=== PATIENT | female | born 1975 | race Caucasian/White ===

== ENCOUNTER 2016-12-17 18:45 | Emergency (ER) | payer MEDICAID ==
[2016-12-17] MEDS ORDERED: LORazepam 2 MG/ML MDV IM ONE (19:16)
--- NOTE | 2016-12-17 19:28 | EDM.PDOC ---
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 she has a 16, 12 and 5yo child at home, she is , children go between 2 house pt last saw her PCP Dr Ramsey 3m ago, given Rx for Wellbutrin, however she had bad dreams and stopped taking it her BP has been inc'd in past, never on BP meds, BP has been wnl on several occasions at pharmacy BP 176/86 here, altho visibly distressed and has been running higher as well gives vague c/o chest discomfort and heart racing states she does not sleep well at night has a 19 yo daughter that left to go to [place] 3m ago, pt has been sending her money and a bus ticket home, dtr will not return home, is using drugs, pt feels she is enabling her dtr occ THC, no soda, 2 cups coffee daily, no energy drinks, occ alcohol, no alc in house, 2-3 cigs/d Bilateral Upper Pain Score (Numeric/FACES): 0 - Related Data Allergies Allergy/AdvReac Type Severity Reaction Status Date / Time naproxen sodium [From Aleve] Allergy Itching Verified 08/25/13 19:56 Home Meds: Home Meds FLUoxetine [PROzac] 20 mg PO 08/25/13 [History] predniSONE [Prednisone] 10 mg PO DAILY 10 Days 08/25/13 [Rx] Metoprolol Succinate 25 mg PO DAILY #14 tab.er.24h 12/17/16 [Rx] hydrOXYzine Pamoate [Hydroxyzine Pamoate] 25 mg PO TID #40 capsule 12/17/16 [Rx] Social & Family History - Tobacco Use Years of Tobacco use: 20 - Alcohol Use Days Per Week of Alcohol Use: 0 - Recreational Drug Use Recreational Drug Use: No ED ROS GENERAL - Review of Systems Review Of Systems: See Below Constitutional: Reports: No Symptoms HEENT: Reports: No Symptoms Respiratory: Reports: No Symptoms Cardiovascular: Reports: Chest Pain, Blood Pressure Problem, Palpitations Endocrine: Reports: No Symptoms GI/Abdominal: Reports: No Symptoms : Reports: No Symptoms Musculoskeletal: Reports: No Symptoms Skin: Reports: No Symptoms Neurological: Reports: No Symptoms Psychiatric: Reports: Anxiety Hematologic/Lymphatic: Reports: No Symptoms Immunologic: Reports: No Symptoms ED EXAM, GENERAL - Physical Exam Exam: See Below Exam Limited By: No Limitations General Appearance: Alert, WD/WN, Anxious Ears: Normal External Exam, Hearing Grossly Normal Ear Exam: Bilateral Ear: Auricle Normal Nose: Normal Inspection, Normal Mucosa, No Blood Throat/Mouth: Normal Inspection, Normal Lips, Normal Oropharynx, Normal Voice, No Airway Compromise Head: Atraumatic, Normocephalic Neck: Normal Inspection, Supple, Non-Tender, Full Range of Motion Respiratory/Chest: No Respiratory Distress, Lungs Clear, Normal Breath Sounds, No Accessory Muscle Use Cardiovascular: Normal Peripheral Pulses, Regular Rate, Rhythm, No Edema, No Gallop, No JVD, No Murmur, No Rub GI/Abdominal: Soft, Non-Tender, No Distention Back Exam: Normal Inspection, Full Range of Motion, NT Extremities: Normal Inspection, Normal Range of Motion, Non-Tender, Normal Capillary Refill, No Pedal Edema Neurological: Alert, Oriented, CN II-XII Intact, Normal Cognition, No Motor/ Sensory Deficits Psychiatric: Anxious Skin Exam: Warm, Dry, Intact, Normal Color, No Rash Lymphatic: No Adenopathy Course - Vital Signs Last Recorded V/S: Last Vital Signs Temp 36.7 C 12/17/16 18:45 Pulse Resp 20 12/17/16 18:45 BP 176/86 H 12/17/16 18:45 Pulse Ox - Orders/Labs/Meds Orders: Active Orders 24 hr Category Date Time Status EKG Documentation Completion [RC] ASDIRECTED Care 12/17/16 19:18 Active Potassium Chloride [Klor-Con M20] Med 12/17/16 20:58 Once 40 meq PO ONETIME ONE EKG 12 Lead [EK] Routine Ther 12/17/16 19:17 Ordered Labs: Laboratory Tests 12/17/16 12/17/16 12/17/16 Range/Units 19:00 19:00 19:35 WBC 6.7 (4.5-12.0) X10-3/uL RBC 4.33 (3.23-5.20) x10(6)uL Hgb 13.2 (11.5-15.5) g/dL Hct 38.9 (30.0-51.3) % MCV 89.8 (80-96) fL MCH 30.4 (27.7-33.6) pg MCHC 33.8 (32.2-35.4) g/dL RDW 12.9 (11.5-15.5) % Plt Count 195 (125-369) X10(3)uL MPV 8.1 (7.4-10.4) fL Neut % (Auto) 42.2 L (46-82) % Lymph % (Auto) 47.3 H (13-37) % [place] % (Auto) 7.1 (4-12) % Eos % (Auto) 3 (1.0-5.0) % Baso % (Auto) 1 (0-2) % Neut # (Auto) 2.8 (1.6-8.3) # Lymph # (Auto) 3.2 (0.6-5.0) # [place] # (Auto) 0.5 (0.0-1.3) # Eos # (Auto) 0.2 (0.0-0.8) # Baso # (Auto) 0.0 (0.0-0.2) # Sodium (135-145) mmol/L Potassium (3.5-5.3) mmol/L Chloride (100-110) mmol/L Carbon Dioxide (23-29) mmol/L BUN (5-20) mg/dL Creatinine (0.6-1.3) mg/dL Est Cr Clr Drug Dosing mL/min Estimated GFR (MDRD) (>60) BUN/Creatinine Ratio (9-20) Glucose (80-116) mg/dL Calcium (8.6-10.2) mg/dL Total Bilirubin (0.1-1.3) mg/dL AST (5-27) IU/L ALT (14-26) IU/L Alkaline Phosphatase (56-112) IU/L Troponin I (0.02-0.06) NG/ML Total Protein (6.0-8.0) g/dL Albumin (3.5-5.2) g/dL Globulin g/dL Albumin/Globulin Ratio Urine Color Yellow (YELLOW) Urine Appearance Clear (CLEAR) Urine pH 7.0 H (5.0-6.5) Ur Specific [place] 1.015 (1.010-1.025) Urine Protein Negative (NEGATIVE) mg/dL Urine Glucose (UA) Normal (NEGATIVE) mg/dL Urine Ketones Negative (NEGATIVE) mg/dL Urine Occult Blood Negative (NEGATIVE) Urine Nitrite Negative (NEGATIVE) Urine Bilirubin Negative (NEGATIVE) Urine Urobilinogen Normal (NEGATIVE) mg/dL Ur Leukocyte Esterase Small H (NEGATIVE) Urine RBC Not seen (0) Urine WBC 0-5 (0) Ur Squamous Epith Cells Moderate H (NS,R,O) Urine Bacteria Few H (NS) Urine Opiates Screen Negative (NEGATIVE) Ur Oxycodone Screen Negative (NEGATIVE) Ur Propoxyphene Screen Negative (NEGATIVE) Ur Barbituates Screen Negative (NEGATIVE) Ur Tricyclics Screen Negative (NEGATIVE) Ur Phencyclidine Scrn Negative (NEGATIVE) Ur Amphetamine Screen Negative (NEGATIVE) Urine MDMA Screen Negative (NEGATIVE) U Benzodiazepines Scrn Negative (NEGATIVE) U Cocaine Metab Screen Negative (NEGATIVE) U Marijuana (THC) Screen Negative (NEGATIVE) 12/17/16 12/17/16 Range/Units 19:35 19:35 WBC (4.5-12.0) X10-3/uL RBC (3.23-5.20) x10(6)uL Hgb (11.5-15.5) g/dL Hct (30.0-51.3) % MCV (80-96) fL MCH (27.7-33.6) pg MCHC (32.2-35.4) g/dL RDW (11.5-15.5) % Plt Count (125-369) X10(3)uL MPV (7.4-10.4) fL Neut % (Auto) (46-82) % Lymph % (Auto) (13-37) % [place] % (Auto) (4-12) % Eos % (Auto) (1.0-5.0) % Baso % (Auto) (0-2) % Neut # (Auto) (1.6-8.3) # Lymph # (Auto) (0.6-5.0) # [place] # (Auto) (0.0-1.3) # Eos # (Auto) (0.0-0.8) # Baso # (Auto) (0.0-0.2) # Sodium 137 (135-145) mmol/L Potassium 3.4 L (3.5-5.3) mmol/L Chloride 105 (100-110) mmol/L Carbon Dioxide 25 (23-29) mmol/L BUN 14 (5-20) mg/dL Creatinine 0.5 L (0.6-1.3) mg/dL Est Cr Clr Drug Dosing 143.99 mL/min Estimated GFR (MDRD) > 60 (>60) BUN/Creatinine Ratio 28.0 H (9-20) Glucose 126 H (80-116) mg/dL Calcium 9.2 (8.6-10.2) mg/dL Total Bilirubin 0.2 (0.1-1.3) mg/dL AST 17 (5-27) IU/L ALT 14 (14-26) IU/L Alkaline Phosphatase 47 L (56-112) IU/L Troponin I < 0.01 L (0.02-0.06) NG/ML Total Protein 7.2 (6.0-8.0) g/dL Albumin 4.0 (3.5-5.2) g/dL Globulin 3.2 g/dL Albumin/Globulin Ratio 1.3 Urine Color (YELLOW) Urine Appearance (CLEAR) Urine pH (5.0-6.5) Ur Specific [place] (1.010-1.025) Urine Protein (NEGATIVE) mg/dL Urine Glucose (UA) (NEGATIVE) mg/dL Urine Ketones (NEGATIVE) mg/dL Urine Occult Blood (NEGATIVE) Urine Nitrite (NEGATIVE) Urine Bilirubin (NEGATIVE) Urine Urobilinogen (NEGATIVE) mg/dL Ur Leukocyte Esterase (NEGATIVE) Urine RBC (0) Urine WBC (0) Ur Squamous Epith Cells (NS,R,O) Urine Bacteria (NS) Urine Opiates Screen (NEGATIVE) Ur Oxycodone Screen (NEGATIVE) Ur Propoxyphene Screen (NEGATIVE) Ur Barbituates Screen (NEGATIVE) Ur Tricyclics Screen (NEGATIVE) Ur Phencyclidine Scrn (NEGATIVE) Ur Amphetamine Screen (NEGATIVE) Urine MDMA Screen (NEGATIVE) U Benzodiazepines Scrn (NEGATIVE) U Cocaine Metab Screen (NEGATIVE) U Marijuana (THC) Screen (NEGATIVE) Meds: Medications Discontinued Medications Generic Name Dose Route Start Last Admin Trade Name Freq PRN Reason Stop Dose Admin Lorazepam 2 mg 12/17/16 19:16 12/17/16 20:21 Ativan IM 12/17/16 19:17 2 mg ONETIME ONE Administration - Re-Assessments/Exams Free Text/Narrative Re-Assessment/Exam: 12/17/16 20:58 pt feeling a little better, more relaxed, BP 158/91, may benefit from a beta marlin which she should d/w her PCP. Labs neg except K 3.4. Pt has not worked with counselor in the past except with her children. Departure - Departure Time of Disposition: 21:00 Disposition: Home, Self-Care 01 Condition: good Clinical Impression: Anxiety - Discharge Information Prescriptions: Metoprolol Succinate 25 mg PO DAILY #14 tab.er.24h hydrOXYzine Pamoate [Hydroxyzine Pamoate] 25 mg PO TID #40 capsule Instructions: Panic Attacks Additional Instructions: For anxiety (and skin rash), take hydroxyzine 25 mg 1 tab 3 times a day for 1 week. You may take a 2nd tab 3 times a day, as needed, for up to a total of 6 tabs a day. For blood pressure (as well as palpitations and anxiety), take metoprolol XL 25 mg [address] Ramsey in the next 1-2 days. Return to ED if you are feeling worse. Call your Physician or Return to Emergency Department if: * Your condition worsens in any way. * You develop fever greater than 100.4. * You have vomitting that does not stop with medications. * You have pain that is not controlled with medications. - My Orders Last 24 Hours: My Active Orders 12/17/16 19:17 EKG 12 Lead [EK] Routine 12/17/16 19:18 EKG Documentation Completion [RC] ASDIRECTED 12/17/16 20:58 Potassium Chloride [Klor-Con M20] 40 meq PO ONETIME ONE - Assessment/Plan Last 24 Hours: My Active Orders 12/17/16 19:17 EKG 12 Lead [EK] Routine 12/17/16 19:18 EKG Documentation Completion [RC] ASDIRECTED 12/17/16 20:58 Potassium Chloride [Klor-Con M20] 40 meq PO ONETIME ONE
[2016-12-17] MEDS ORDERED: Potassium Chloride 20 MEQ Tab.ER PO ONE (20:58)
[2016-12-17] MEDS ORDERED: Metoprolol Succinate 25 MG Tab.ER PO ONE (21:17)
[2016-12-17 21:54] VITALS: BP 164/72
== END 2016-12-17 21:50 | disposition home or self-care (01) ==
LOC: FB.ED 18:45
DX: F41.9 Anxiety disorder, unspecified (principal); Z88.8 Allergy status to other drugs, medicaments and biological substances; Z79.899 Other long term (current) drug therapy
CPT/HCPCS: 36415; 80053; 80305; 81001; 84484; 85025; 93005; 96372; 99285; A9270; J2060

== ENCOUNTER 2017-12-29 05:02 | Emergency (ER) | payer MEDICAID ==
[2017-12-29] MEDS ORDERED: Triamcinolone Acetonide 40 MG/ML 1 ML MDV IM ONE (06:30)
[2017-12-29] MEDS ORDERED: hydrOXYzine HCl 50 MG/ML SDV IM ONE (06:30)
[2017-12-29 06:58] VITALS: BP 163/78
--- NOTE | 2017-12-29 07:22 | ER ---
DATE SEEN: 12/29/2017 CHIEF COMPLAINT: Shortness of breath. HISTORY OF PRESENT ILLNESS: This is a 42-year-old female with shortness of breath since the morning. She attributes it to anxiety. She also complains of abdominal pain that is on and off for the last six weeks after surgery. She had tubal ablation, laparoscopically. She has hydrocodone at home but has not taken it. The pain is moderate to severe. REVIEW OF SYSTEMS: She complains of a rash around the neck area that is itchy. She has had this before. She does not complain of fever or chills, sore throat or cough. ALLERGIES: Reviewed. PHYSICAL EXAMINATION: GENERAL: She is not in distress. VITAL SIGNS: She has a blood pressure of 150/91, temperature 98.5, and oxygenation 99% on room air. Respiratory rate is 15. ENT: Negative. CHEST: Clear. ABDOMEN: Soft, benign. SKIN: No pallor or jaundice. The wound appears clean. There is a red hue and diffuse rash in the neck area. LABORATORY DATA: Sodium was normal, potassium was 3.1, and troponin was less than 0.17. EKG was negative. D-dimer was negative. IMPRESSION: 1. Nonspecific abdominal pain. 2. Hives. 3. Anxiety. PLAN: 1. Vistaril and Kenalog IM. 2. A note was given to stay home today and return to work tomorrow. Discussed with the surgeon about work restrictions. /[id number] SARA/GOPI
== END 2017-12-29 06:56 | disposition home or self-care (01) ==
LOC: FB.ED 05:02
DX: L50.9 Urticaria, unspecified (principal); R10.9 Unspecified abdominal pain; F41.9 Anxiety disorder, unspecified
CPT/HCPCS: 36415; 80053; 84484; 85025; 85379; 93005; 96372; 99284; J3301; J3410

== ENCOUNTER 2018-08-20 17:09 | Emergency (ER) | payer MEDICAID ==
[2018-08-20] MEDS ORDERED: Labetalol 20 MG/4 ML Syringe IVPUSH ONE ×2 (17:15→17:55)
--- NOTE | 2018-08-20 17:22 | EDM.PDOC ---
ED HPI GENERAL MEDICAL PROBLEM - General Chief Complaint: Syncope Stated Complaint: HIGH BP Time Seen by Provider: 08/20/18 17:09 Source of Information: Reports: Patient, Family History Limitations: Reports: No Limitations - History of Present Illness INITIAL COMMENTS - FREE TEXT/NARRATIVE: 43 y.o.w.f -smoker- came to the clinic due to dizziness. Her BP was 220/130 and she was transferred to the ed for further care. On arrival in the ed, her BP was 188/98 with mild dizziness. Pt was told she has HNT in past and was prescribed meds, but she ignored it and did not take any BP meds. Pt fell yesterday and injured her right thigh which resulted in hematoma of her right thigh, lateral aspect. Pt is able to apply full weight onto her right leg, however. No N/V/D, no headache no SOB, no C/P no other acute medical issue. BP 188/98 Pulse 89 RR 18 Pulse ox 99% on RA Temp 36.8 Onset Date: 08/20/18 Onset Time: 07:00 Duration: Day(s):, Intermittent Location: Reports: Generalized Quality: Reports: Ache, Other (right thigh) Improves with: Reports: Cold Therapy, Rest Worsens with: Reports: Movement Context: Reports: Trauma (minor trauma) Associated Symptoms: Reports: Malaise, Rash (right thigh) - Related Data Allergies Allergy/AdvReac Type Severity Reaction Status Date / Time naproxen sodium [From Aleve] Allergy Itching Verified 08/20/18 17:13 Home Meds: Home Meds Acetaminophen/HYDROcodone [[place] 325-5 MG] 1 - 2 tab PO Q6H PRN #14 tab [Rx] Escitalopram [Lexapro] 10 mg PO DAILY 08/20/18 [History] cloNIDine [Catapres] 0.1 mg PO Q12HR #20 tab 08/20/18 [Rx] hydrOXYzine pamoate [Hydroxyzine Pamoate] 25 mg PO DAILY 08/20/18 [History] Past Medical History - Past Health History Medical/Surgical History: Denies Medical/Surgical History HEENT History: Reports: None Cardiovascular History: Reports: None Respiratory History: Reports: None Gastrointestinal History: Reports: None Genitourinary History: Reports: None CLIENT SUCCESS MANAGER History: Reports: None Musculoskeletal History: Reports: None Neurological History: Reports: None Psychiatric History: Reports: Anxiety, Depression, Panic Attack Endocrine/Metabolic History: Reports: None Hematologic History: Reports: None Immunologic History: Reports: None Oncologic (Cancer) History: Reports: None Dermatologic History: Reports: None - Past Surgical History Head Surgeries/Procedures: Reports: None HEENT Surgical History: Reports: None Cardiovascular Surgical History: Reports: None GI Surgical History: Reports: None Female Surgical History: Reports: None Endocrine Surgical History: Reports: None Neurological Surgical History: Reports: None Musculoskeletal Surgical History: Reports: None Oncologic Surgical History: Reports: None Dermatological Surgical History: Reports: None Social & Family History - Family History Family Medical History: Noncontributory HEENT: Reports: None Cardiac: Reports: None Respiratory: Reports: None GI: Reports: None : Reports: None Psychiatric: Reports: Depression - Caffeine Use Caffeine Use: Reports: Coffee Caffeine Use Comment: Two cups of coffee a day. ED ROS GENERAL - Review of Systems Review Of Systems: See Below Constitutional: Reports: No Symptoms, Other (dizzy) HEENT: Reports: No Symptoms Respiratory: Reports: No Symptoms Cardiovascular: Reports: No Symptoms Endocrine: Reports: No Symptoms GI/Abdominal: Reports: No Symptoms : Reports: No Symptoms Musculoskeletal: Reports: Muscle Pain (right thigh) Skin: Reports: Other (Ecchymosis right thigh) Neurological: Reports: Dizziness Psychiatric: Reports: No Symptoms Hematologic/Lymphatic: Reports: No Symptoms Immunologic: Reports: No Symptoms ED EXAM, GENERAL - Physical Exam Exam: See Below Exam Limited By: No Limitations General Appearance: Alert, WD/WN, Mild Distress Eye Exam: Bilateral Eye: Normal Inspection Ears: Normal External Exam Ear Exam: Bilateral Ear: Auricle Normal Nose: Normal Inspection, Normal Mucosa, No Blood Throat/Mouth: Normal Inspection, Normal Lips, Normal Voice, No Airway Compromise Head: Atraumatic, Normocephalic Neck: Normal Inspection, Supple, Non-Tender, Full Range of Motion Respiratory/Chest: No Respiratory Distress, Lungs Clear, Normal Breath Sounds, No Accessory Muscle Use, Chest Non-Tender Cardiovascular: Normal Peripheral Pulses, Regular Rate, Rhythm, No Edema, No Gallop Peripheral Pulses: 2+: Brachial (L) GI/Abdominal: Normal Bowel Sounds, Soft, Non-Tender, No Organomegaly, No Abnormal Bruit, No Mass, Pelvis Stable (Female) Exam: Deferred Rectal (Female) Exam: Deferred Back Exam: Normal Inspection, Full Range of Motion Extremities: Normal Range of Motion, Leg Pain (right thigh lat aspect), Redness (ecchymosis right thigh) Neurological: Alert, Oriented, CN II-XII Intact, Normal Cognition, Abnormal Gait (right thigh pain, can apply full weight onto right lower extremity) Psychiatric: Normal Affect, Normal Mood Skin Exam: Warm, Dry, Ecchymosis (right thigh) Lymphatic: No Adenopathy EKG INTERPRETATION EKG Date: 08/20/18 Time: 17:50 Rhythm: NSR Rate (Beats/Min): 73 [place]: Normal P-Wave: Present QRS: Normal ST-T: Normal QT: Normal Comparison: NA - No Prior EKG Course - Vital Signs Text/Narrative:: 43 y.o.w.f -smoker- came to the clinic due to dizziness. Her BP was 220/130 and she was transferred to the ed for further care. On arrival in the ed, her BP was 188/98 with mild dizziness. Pt was told she has HNT in past and was prescribed meds, but she ignored it and did not take any BP meds. Pt fell yesterday and injured her right thigh which resulted in hematoma of her right thigh, lateral aspect. Pt is able to apply full weight onto her right leg, however. No N/V/D, no headache no SOB, no C/P no other acute medical issue. BP 188/98 Pulse 89 RR 18 Pulse ox 99% on RA Temp 36.8 PE: WNWD W F with HNT and right high pain, Dizziness subsided, fall yesterday with pain right thigh (able to sand on right leg) Labs: CBC, BMP NL.UA: Pt was asked several time to provide urine while here in the ed, did not deliver Impression: Hypertensive urgency, Hypokalemia, Sprain Right Thigh with Ecchymosis Tx: Potassium, Labetolol 20 mg, then Clonidine, [place] for thigh pain Reexam: Pt was observed in the ed for several hours, her BP was 136/68 on D/C, Pt refused to wait for a UA/UDS. Plan: D/C with instructions Last Recorded V/S: Last Vital Signs Temp 36.9 C 08/20/18 17:10 Pulse 67 08/20/18 20:30 Resp 14 08/20/18 20:30 BP 139/68 08/20/18 20:30 Pulse Ox 98 08/20/18 20:30 - Orders/Labs/Meds Labs: Laboratory Tests 08/20/18 08/20/18 08/20/18 Range/Units 17:35 17:35 17:35 WBC 8.8 (4.5-12.0) X10-3/uL RBC 4.45 (3.23-5.20) x10(6)uL Hgb 14.2 (11.5-15.5) g/dL Hct 41.4 (30.0-51.3) % MCV 92.9 (80-96) fL MCH 31.9 (27.7-33.6) pg MCHC 34.3 (32.2-35.4) g/dL RDW 14.3 (11.5-15.5) % Plt Count 305 (125-369) X10(3)uL MPV 7.6 (7.4-10.4) fL Neut % (Auto) 57.7 (46-82) % Lymph % (Auto) 33.0 (13-37) % [place] % (Auto) 7.0 (4-12) % Eos % (Auto) 2 (1.0-5.0) % Baso % (Auto) 1 (0-2) % Neut # (Auto) 5.0 (1.6-8.3) # Lymph # (Auto) 2.9 (0.6-5.0) # [place] # (Auto) 0.6 (0.0-1.3) # Eos # (Auto) 0.2 (0.0-0.8) # Baso # (Auto) 0.1 (0.0-0.2) # PT 9.4 (8.7-11.1) INR 0.97 (0.89-1.13) Sodium 139 (135-145) mmol/L Potassium 3.3 L (3.5-5.3) mmol/L Chloride 103 (100-110) mmol/L Carbon Dioxide 27 (21-32) mmol/L BUN 14 (7-18) mg/dL Creatinine 0.7 (0.55-1.02) mg/dL Est Cr Clr Drug Dosing TNP Estimated GFR (MDRD) > 60 (>60) BUN/Creatinine Ratio 20.0 (9-20) Glucose 99 (80-116) mg/dL Calcium 9.2 (8.6-10.2) mg/dL Magnesium (1.8-2.5) mg/dL Creatine Kinase (60-160) IU/L Troponin I (<0.017-0.056) ng/mL 08/20/18 08/20/18 08/20/18 Range/Units 17:35 17:35 17:35 WBC (4.5-12.0) X10-3/uL RBC (3.23-5.20) x10(6)uL Hgb (11.5-15.5) g/dL Hct (30.0-51.3) % MCV (80-96) fL MCH (27.7-33.6) pg MCHC (32.2-35.4) g/dL RDW (11.5-15.5) % Plt Count (125-369) X10(3)uL MPV (7.4-10.4) fL Neut % (Auto) (46-82) % Lymph % (Auto) (13-37) % [place] % (Auto) (4-12) % Eos % (Auto) (1.0-5.0) % Baso % (Auto) (0-2) % Neut # (Auto) (1.6-8.3) # Lymph # (Auto) (0.6-5.0) # [place] # (Auto) (0.0-1.3) # Eos # (Auto) (0.0-0.8) # Baso # (Auto) (0.0-0.2) # PT (8.7-11.1) INR (0.89-1.13) Sodium (135-145) mmol/L Potassium (3.5-5.3) mmol/L Chloride (100-110) mmol/L Carbon Dioxide (21-32) mmol/L BUN (7-18) mg/dL Creatinine (0.55-1.02) mg/dL Est Cr Clr Drug Dosing Estimated GFR (MDRD) (>60) BUN/Creatinine Ratio (9-20) Glucose (80-116) mg/dL Calcium (8.6-10.2) mg/dL Magnesium 1.9 (1.8-2.5) mg/dL Creatine Kinase 95 (60-160) IU/L Troponin I < 0.017 L (<0.017-0.056) ng/mL Meds: Medications Discontinued Medications Generic Name Dose Route Start Last Admin Trade Name Freq PRN Reason Stop Dose Admin Hydrocodone Bitart/Acetaminophen 2 tab 08/20/18 18:15 08/20/18 18:24 [place] 325-5 Mg PO 08/20/18 18:16 2 tab ONETIME ONE Administration Clonidine HCl 0.1 mg 08/20/18 18:19 08/20/18 18:25 Catapres PO 08/20/18 18:20 0.1 mg ONETIME ONE Administration Clonidine HCl 0.1 mg 08/20/18 19:11 08/20/18 19:35 Catapres PO 08/20/18 19:12 0.1 mg ONETIME ONE Administration Ketorolac Tromethamine 30 mg 08/20/18 17:29 08/20/18 17:44 Toradol IVPUSH 08/20/18 17:30 30 mg ONETIME STA Administration Labetalol HCl 10 mg 08/20/18 17:15 08/20/18 17:43 Normodyne IVPUSH 08/20/18 17:16 10 mg ONETIME ONE Administration Protocol Labetalol HCl 10 mg 08/20/18 17:55 08/20/18 18:06 Normodyne IVPUSH 08/20/18 17:56 10 mg ONETIME ONE Administration Protocol Potassium Chloride 40 meq 08/20/18 18:07 08/20/18 18:24 Klor-Con M20 PO 08/20/18 18:08 40 meq ONETIME ONE Administration Departure - Departure Time of Disposition: 20:14 Disposition: Home, Self-Care 01 Condition: Good Clinical Impression: Hypertensive urgency, Thigh sprain, Hypokalemia Prescriptions: cloNIDine [Catapres] 0.1 mg PO Q12HR #20 tab Acetaminophen/HYDROcodone [[place] 325-5 MG] 1 - 2 tab PO Q6H PRN #14 tab PRN Reason: for severe pain only Instructions: Acetaminophen; Hydrocodone tablets or capsules, Ketorolac injection, Labetalol injection, Hypokalemia, Hypertension, [id number], Clonidine tablets Referrals: Gilles Messina MD [Primary Care Provider] - Forms: ED Department Discharge, ED Return to Work/School Form Additional Instructions: Please take the meds as recommended, please apply ice to the right thigh, elevation, rest are important as well. Please follow up with Dr. Messina as soon as able, come back if your symptoms get worse acutely.
[2018-08-20] MEDS ORDERED: Ketorolac 30 MG/ML SDV IVPUSH STA (17:29)
[2018-08-20] MEDS ORDERED: Potassium Chloride 20 MEQ Tab.ER PO ONE (18:07)
[2018-08-20] MEDS ORDERED: Acetaminophen/HYDROcodone 325-5 MG Tab PO ONE (18:15)
[2018-08-20] MEDS ORDERED: cloNIDine 0.1 MG Tab PO ONE ×2 (18:19→19:11)
[2018-08-20 21:45] VITALS: BP 139/68
== END 2018-08-20 20:45 | disposition home or self-care (01) ==
LOC: FB.ED 17:09
DX: I16.0 Hypertensive urgency (principal); E87.6 Hypokalemia; F32.9 Major depressive disorder, single episode, unspecified; F41.9 Anxiety disorder, unspecified; Z79.899 Other long term (current) drug therapy; Z88.6 Allergy status to analgesic agent
CPT/HCPCS: 36415; 80048; 82550; 83735; 84484; 85025; 85610; 93005; 96374; 96375; 99284; A9270; J1885; J3490

== ENCOUNTER 2018-12-08 05:47 | Emergency (ER) | payer MEDICAID ==
--- NOTE | 2018-12-08 06:36 | EDM.PDOC ---
ED HPI GENERAL MEDICAL PROBLEM - General Chief Complaint: Lower Extremity Injury/Pain Stated Complaint: RT LEG PAIN Time Seen by Provider: 12/08/18 05:47 Source of Information: Reports: Patient History Limitations: Reports: No Limitations - History of Present Illness INITIAL COMMENTS - FREE TEXT/NARRATIVE: 43 y.o.w.f with a S/P Partial Hysterectomy, came to the ED with her family due to severe pain at her right groin, worse when elevating her right leg. Pt fell about 4 weeks ago on a deck and injured her right leg. She was seen in the ED then. Her groin pain did not subside since. She takes Motrin 800 mg daily and is applying ice to the affected area. She went to work this am and had to leave work because of excruciating pain at her right groin. No swelling, no new trauma , no open wound, no vaginal discharge. No N/V/D no Dizziness or lightheadedness. No urinary symptoms, no F/C. No other acute med issues. 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 Respiratory History: Reports: None Gastrointestinal History: Reports: None Genitourinary History: Reports: None FRIT BURNER History: Reports: None, Other FRIT BURNER History: [id number] Musculoskeletal History: Reports: Fracture Other Musculoskeletal History: hx fx nose, toes Neurological History: Reports: None Psychiatric History: Reports: Anxiety, Depression, Panic Attack Endocrine/Metabolic History: Reports: None Hematologic History: Reports: Anemia Immunologic History: Reports: None Oncologic (Cancer) History: Reports: None Dermatologic History: Reports: None - Infectious Disease History Infectious Disease History: Reports: Chicken Pox - Past Surgical History Head Surgeries/Procedures: Reports: None HEENT Surgical History: Reports: None GI Surgical History: Reports: None Female Surgical History: Reports: None, Hysterectomy, Salpingo-Oophorectomy Endocrine Surgical History: Reports: None Neurological Surgical History: Reports: None Musculoskeletal Surgical History: Reports: None Oncologic Surgical History: Reports: None Dermatological Surgical History: Reports: None Social & Family History - Family History Family Medical History: Noncontributory HEENT: Reports: None Cardiac: Reports: None Respiratory: Reports: None GI: Reports: None : Reports: None Musculoskeletal: Reports: None Neurological: Reports: None Psychiatric: Reports: Depression - Tobacco Use Smoking Status *Q: Current Every Day Smoker Years of Tobacco use: 20 Packs/Tins Daily: 0.5 - Caffeine Use Caffeine Use: Reports: Coffee Caffeine Use Comment: Two cups of coffee a day. - Alcohol Use Days Per Week of Alcohol Use: 2 Number of Drinks Per Day: 5 Total Drinks Per Week: 10 - Recreational Drug Use Recreational Drug Use: No Review of Systems - Review of Systems Review Of Systems: See Below Constitutional: Reports: No Symptoms Eyes: Reports: No Symptoms Ears: Reports: No Symptoms Nose: Reports: No Symptoms Mouth/Throat: Reports: No Symptoms Respiratory: Reports: No Symptoms Cardiovascular: Reports: No Symptoms GI/Abdominal: Reports: No Symptoms Genitourinary: Reports: No Symptoms Musculoskeletal: Reports: Muscle Pain Skin: Reports: No Symptoms Neurological: Reports: No Symptoms Psychiatric: Reports: No Symptoms ED EXAM, GENERAL - Physical Exam Exam: See Below Exam Limited By: No Limitations General Appearance: Alert, WD/WN, Mild Distress Eye Exam: Bilateral Eye: Normal Inspection Ears: Normal External Exam Ear Exam: Bilateral Ear: Auricle Normal Nose: Normal Inspection Throat/Mouth: Normal Inspection, Normal Lips, Normal Voice, No Airway Compromise Head: Atraumatic, Normocephalic Neck: Normal Inspection, Supple, Non-Tender, Full Range of Motion Respiratory/Chest: No Respiratory Distress, Lungs Clear, Normal Breath Sounds Cardiovascular: Normal Peripheral Pulses, Regular Rate, Rhythm, No Edema Peripheral Pulses: 1+: Brachial (R) GI/Abdominal: Normal Bowel Sounds, Soft, Non-Tender, No Organomegaly, No Distention, No Abnormal Bruit (Female) Exam: Normal External Exam Rectal (Female) Exam: Deferred Back Exam: Normal Inspection, Full Range of Motion Extremities: Normal Inspection, Normal Range of Motion, Other (Tenderness right groin/prox ant/med thigh) Neurological: Alert, Oriented, CN II-XII Intact, Normal Cognition, Abnormal Gait (because of thigh/groin pain) Psychiatric: Normal Affect, Normal Mood Skin Exam: Warm, Dry, Intact, Normal Color, No Rash Lymphatic: No Adenopathy Course - Vital Signs Text/Narrative:: 43 y.o.w.f with a S/P Partial Hysterectomy, came to the ED with her family due to severe pain at her right groin, worse when elevating her right leg. Pt fell about 4 weeks ago on a deck and injured her right leg. She was seen in the ED then. Her groin pain did not subside since. She takes Motrin 800 mg daily and is applying ice to the affected area. She went to work this am and had to leave work because of excruciating pain at her right groin. No swelling, no new trauma , no open wound, no vaginal discharge. No N/V/D no Dizziness or lightheadedness. No urinary symptoms, no F/C. No other acute med issues. BP 137/ 83 Pulse ox 99% on RA RR 18 Pulse 60 Temp 36.8 PE: WNWD W F with right groin pain Imaging: Neg for femoral hernia, appy, hematoma, mass etc as per RAD, official report is pending Labs: CBC/BMP were neg BUN/CR were elevated due to decr Cr of 0.6 UA: Neg for UTI Impression: Muscular skeletal pain right groin, DDX: hernia, Tendinitis, Tx: ICE, Toradol Reexam: Pain subsided 80%. Pt was able to ambulate well on D/C Plan: D/C with instructions Last Recorded V/S: Last Vital Signs Temp 36.5 C 12/08/18 05:48 Pulse 57 L 12/08/18 08:30 Resp 16 12/08/18 08:30 BP 143/88 H 12/08/18 08:30 Pulse Ox 100 12/08/18 08:30 - Orders/Labs/Meds Orders: Active Orders 24 hr Category Date Time Status Pelvis w Cont [CT] Stat Exams 12/08/18 06:34 Taken Peripheral IV Insertion Adult [OM.PC] Routine Oth 12/08/18 06:44 Ordered Labs: Laboratory Tests 12/08/18 12/08/18 12/08/18 Range/Units 06:37 06:37 06:50 WBC 5.4 (4.5-12.0) X10-3/uL RBC 4.02 (3.23-5.20) x10(6)uL Hgb 12.9 (11.5-15.5) g/dL Hct 37.8 (30.0-51.3) % MCV 94.1 (80-96) fL MCH 32.0 (27.7-33.6) pg MCHC 34.1 (32.2-35.4) g/dL RDW 13.6 (11.5-15.5) % Plt Count 233 (125-369) X10(3)uL MPV 8.3 (7.4-10.4) fL Neut % (Auto) 48.1 (46-82) % Lymph % (Auto) 39.2 H (13-37) % [place] % (Auto) 7.7 (4-12) % Eos % (Auto) 4 (1.0-5.0) % Baso % (Auto) 1 (0-2) % Neut # (Auto) 2.6 (1.6-8.3) # Lymph # (Auto) 2.1 (0.6-5.0) # [place] # (Auto) 0.4 (0.0-1.3) # Eos # (Auto) 0.2 (0.0-0.8) # Baso # (Auto) 0.1 (0.0-0.2) # Sodium (135-145) mmol/L Potassium (3.5-5.3) mmol/L Chloride (100-110) mmol/L Carbon Dioxide (21-32) mmol/L BUN (7-18) mg/dL Creatinine (0.55-1.02) mg/dL Est Cr Clr Drug Dosing mL/min Estimated GFR (MDRD) (>60) BUN/Creatinine Ratio (9-20) Glucose (80-116) mg/dL Calcium (8.6-10.2) mg/dL Urine Color Yellow (YELLOW) Urine Appearance Clear (CLEAR) Urine pH 6.0 (5.0-6.5) Ur Specific [place] 1.015 (1.010-1.025) Urine Protein Negative (NEGATIVE) mg/dL Urine Glucose (UA) Normal (NORMAL) mg/dL Urine Ketones Negative (NEGATIVE) mg/dL Urine Occult Blood Negative (NEGATIVE) Urine Nitrite Negative (NEGATIVE) Urine Bilirubin Negative (NEGATIVE) Urine Urobilinogen Normal (NEGATIVE) mg/dL Ur Leukocyte Esterase Negative (NEGATIVE) Urine WBC 0-5 (0-5) Ur Squamous Epith Cells Few H (NS,R,O) Urine Bacteria Few H (NS) Urine HCG, Qual Negative (NEGATIVE) 12/08/18 Range/Units 06:50 WBC (4.5-12.0) X10-3/uL RBC (3.23-5.20) x10(6)uL Hgb (11.5-15.5) g/dL Hct (30.0-51.3) % MCV (80-96) fL MCH (27.7-33.6) pg MCHC (32.2-35.4) g/dL RDW (11.5-15.5) % Plt Count (125-369) X10(3)uL MPV (7.4-10.4) fL Neut % (Auto) (46-82) % Lymph % (Auto) (13-37) % [place] % (Auto) (4-12) % Eos % (Auto) (1.0-5.0) % Baso % (Auto) (0-2) % Neut # (Auto) (1.6-8.3) # Lymph # (Auto) (0.6-5.0) # [place] # (Auto) (0.0-1.3) # Eos # (Auto) (0.0-0.8) # Baso # (Auto) (0.0-0.2) # Sodium 140 (135-145) mmol/L Potassium 4.2 (3.5-5.3) mmol/L Chloride 103 (100-110) mmol/L Carbon Dioxide 27 (21-32) mmol/L BUN 13 (7-18) mg/dL Creatinine 0.5 L (0.55-1.02) mg/dL Est Cr Clr Drug Dosing 141.08 mL/min Estimated GFR (MDRD) > 60 (>60) BUN/Creatinine Ratio 26.0 H (9-20) Glucose 95 (80-116) mg/dL Calcium 9.1 (8.6-10.2) mg/dL Urine Color (YELLOW) Urine Appearance (CLEAR) Urine pH (5.0-6.5) Ur Specific [place] (1.010-1.025) Urine Protein (NEGATIVE) mg/dL Urine Glucose (UA) (NORMAL) mg/dL Urine Ketones (NEGATIVE) mg/dL Urine Occult Blood (NEGATIVE) Urine Nitrite (NEGATIVE) Urine Bilirubin (NEGATIVE) Urine Urobilinogen (NEGATIVE) mg/dL Ur Leukocyte Esterase (NEGATIVE) Urine WBC (0-5) Ur Squamous Epith Cells (NS,R,O) Urine Bacteria (NS) Urine HCG, Qual (NEGATIVE) Meds: Medications Discontinued Medications Generic Name Dose Route Start Last Admin Trade Name Freq PRN Reason Stop Dose Admin Iopamidol 100 ml 12/08/18 07:17 12/08/18 07:37 Isovue-370 (76%) IV 12/08/18 07:18 93 ml ONETIME ONE Administration Ketorolac Tromethamine 60 mg 12/08/18 06:39 12/08/18 06:56 Toradol IM 12/08/18 06:40 Not Given ONETIME ONE Ketorolac Tromethamine 30 mg 12/08/18 06:43 12/08/18 06:51 Toradol IVPUSH 12/08/18 06:44 30 mg ONETIME ONE Administration Sodium Chloride 10 ml 12/08/18 06:44 12/08/18 06:50 Saline Flush FLUSH 10 ml ASDIRECTED PRN Administration Keep Vein Open Departure - Departure Time of Disposition: 08:29 Disposition: Home, Self-Care 01 Condition: Good Clinical Impression: Right groin pain - Discharge Information Referrals: Gilles Messina MD [Primary Care Provider] - Forms: ED Department Discharge, ED Return to Work/School Form Additional Instructions: Please take Motrin for pain, please apply ice to the affected area, please f/u with your PMD/Orthopedic surgeon, please come back if your symptoms get worse acutely. - My Orders Last 24 Hours: My Active Orders 12/08/18 06:34 Pelvis w Cont [CT] Stat 12/08/18 06:44 Peripheral IV Insertion Adult [OM.PC] Routine - Assessment/Plan Last 24 Hours: My Active Orders 12/08/18 06:34 Pelvis w Cont [CT] Stat 12/08/18 06:44 Peripheral IV Insertion Adult [OM.PC] Routine
[2018-12-08] MEDS ORDERED: Ketorolac 60 MG/2 ML SDV IM ONE (06:39)
[2018-12-08] MEDS ORDERED: Ketorolac 30 MG/ML SDV IVPUSH ONE (06:43)
[2018-12-08] MEDS ORDERED: Sodium Chloride 0.9% 10 ML Syringe FLUSH PRN (06:44)
[2018-12-08] MEDS ORDERED: Iopamidol 755 Mg/ML 100 ML Bottle IV ONE (07:17)
[2018-12-08 08:44] VITALS: BP 143/88
== END 2018-12-08 08:40 | disposition home or self-care (01) ==
LOC: FB.ED 05:47
DX: R10.31 Right lower quadrant pain (principal); F17.210 Nicotine dependence, cigarettes, uncomplicated; I10 Essential (primary) hypertension; F41.9 Anxiety disorder, unspecified; F32.9 Major depressive disorder, single episode, unspecified; Z79.899 Other long term (current) drug therapy
CPT/HCPCS: 72193; 80048; 81001; 81025; 85025; 96374; 99284-25; J1885; Q9967

== ENCOUNTER 2019-04-18 13:01 | Observation (INO) | payer MEDICAID ==
[2019-04-18] MEDS ORDERED: Aspirin 81 MG Tab.Chew PO ONE (13:52)
[2019-04-18] MEDS: Nitroglycerin 0.4 MG Tab.SL SL PRN ×3 (14:46→15:04)
--- NOTE | 2019-04-18 15:05 | CR ---
INDICATION: Chest pain, wheezing. CHEST: PA and lateral views of the chest were obtained 04/18/19 - no comparisons. The heart, mediastinum, and bony thorax were unremarkable, except to note some mild hypertrophic degenerative changes in the mid thoracic spine, right laterally off vertebral bodies. An active infiltrate or effusion was not identified. IMPRESSION: No acute process. MTDD
[2019-04-18] MEDS ORDERED: Ondansetron 4 MG Tab.DIS PO PRN (16:49)
[2019-04-18] MEDS ORDERED: Sodium Chloride 0.9% 10 ML Syringe FLUSH PRN (16:49)
--- NOTE | 2019-04-18 17:15 | PCM.HP.2 ---
H&P History of Present Illness - General Date of Service: 04/18/19 Admit Problem/Dx: Admission Diagnosis/Problem Admission Diagnosis/Problem Hypertensive urgency Source of Information: Patient, Provider (Dr Jaramillo) - History of Present Illness Initial Comments - Free Text/Narative: A 44 year old female presented to ER for central chest pain, since this morning around 9 am, lasts for 10-15 sec, radiates to left arm, feels like squeezing pressure. Headache, but no shortness of breath, nausea or vomiting. She has been having uncontrolled hypertension for over a year. She stopped her medication for 2 months in [place] because she felt better, she has been on Losartan 50 mg and then was increased to 100 mg last week seen in walk-in clinic for hypertensive urgency. She had been on a couple of others in the past but Dr Messina, her primary doctor took her off them. Denies taking Metoprolol , Lisinopril, HCTZ, Amlodipine, or any water pill type medication. Thinks they put her on an anxiety medication in the past for her blood pressure but Dr Messina stopped. She states initially her blood pressure was better after being seen last week but then she started having increased body aches, stomach pains, said the side effects listed with the medication. She doesn't feel like she has the flu, no fevers or chills. No sinus symptoms. No dysuria, frequency or hematuria. No peripheral edema. Received nitroglycerin in ER which has brought her pressures down to 140s, headache improved. Strong family history of heart disease: dad in his sleep at 48, had blocked vessels in his neck, brother had PA at 38, her mom is getting stents today in [place]. She also has history of cardiac arrest during her hysterectomy -salpingectomy, it was felt it was due to the anesthesia. Dad also had a pacemaker at one point for arrhythmia what kind she is not sure. States she had some tests done by Dr Messina but not sure what the results were, she couldn' t find in her chart. - Related Data Allergies/Adverse Reactions: Allergies Allergy/AdvReac Type Severity Reaction Status Date / Time naproxen sodium [From Aleve] Allergy Itching Verified 04/18/19 14:27 Home Medications: Home Meds Ibuprofen 800 mg PO BID PRN 04/18/19 [History] Losartan [Cozaar] 100 mg PO DAILY 04/18/19 [History] Mv-Min/Iron/Folic/Calcium/Vitk [Women's Multivitamin Tablet] 1 tab PO DAILY [History] Past Medical History - Past Health History Medical/Surgical History: Denies Medical/Surgical History HEENT History: Reports: None Cardiovascular History: Reports: Hypertension Other Cardiovascular History: Stated her heart stopped during a surgery she had in the past. 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, Other OB/BYN History: [id number] Musculoskeletal History: Reports: Fracture Other Musculoskeletal History: hx fx nose, toes Neurological History: Reports: None Psychiatric History: Reports: Anxiety, Depression, Panic Attack Endocrine/Metabolic History: Reports: None Hematologic History: Reports: Anemia Immunologic History: Reports: None Oncologic (Cancer) History: Reports: None Dermatologic History: Reports: None - Infectious Disease History Infectious Disease History: Reports: Chicken Pox - Past Surgical History Head Surgeries/Procedures: Reports: None HEENT Surgical History: Reports: None GI Surgical History: Reports: None Female Surgical History: Reports: None, Hysterectomy, Salpingo-Oophorectomy Endocrine Surgical History: Reports: None Neurological Surgical History: Reports: None Musculoskeletal Surgical History: Reports: None Oncologic Surgical History: Reports: None Dermatological Surgical History: Reports: None Social & Family History - Family History HEENT: Reports: None Cardiac: Reports: None, CAD (mom, dad, brother), Hypertension, PA (brother at 38 ), Stent (mom 04/18/2019), Other (See Below) (Dad sudden at 48, autopsy showed blocked vessels in posterior neck) Respiratory: Reports: None GI: Reports: None : Reports: None, Dialysis (brother, born with one kidney & one testicle) Musculoskeletal: Reports: None Neurological: Reports: None Psychiatric: Reports: Depression Endocrine/Metabolic: Reports: Diabetes, type II - Tobacco Use Smoking Status *Q: Current Every Day Smoker (had pain with smoking yesterday so she hasn't smoked today. Never had that happen before.) Tobacco Use Within Last Twelve Months: Cigarettes - Caffeine Use Caffeine Use: Reports: Coffee Caffeine Use Comment: Two cups of coffee a day. - Alcohol Use Alcohol Use History: Yes H&P Review of Systems - Review of Systems: Review Of Systems: ROS reveals no pertinent complaints other than HPI. Exam - Exam Exam: See Below - Vital Signs Vital Signs: Last Vital Signs Temp Pulse Resp BP 187/94 H 04/18/19 15:04 Pulse Ox Weight: 79.379 kg - Exam General: Alert, Oriented, Cooperative HEENT: PERRLA, EOMI, Mucosa Moist & [place] Neck: Supple, Trachea Midline Lungs: Clear to Auscultation, Normal Respiratory Effort Cardiovascular: Regular Rate, Regular Rhythm GI/Abdominal Exam: Normal Bowel Sounds, Soft, Non-Tender, No Organomegaly, No Distention, No Abnormal Bruit, No Mass Extremities: No Pedal Edema Peripheral Pulses: 2+: Radial (L), Radial (R), Posterior Tibial (L), Posterior Tibial (R), Dorsalis Pedis (L), Dorsalis Pedis (R) Skin: Warm, Dry, Intact Neurological: Cranial Nerves Intact Neuro Extensive - Mental Status: Alert, Oriented x3 - Patient Data Lab Results Last 24 hrs: Laboratory Results - last 24 hr 04/18/19 04/18/19 04/18/19 Range/Units 13:25 13:25 13:25 WBC 5.4 (4.5-12.0) X10-3/uL RBC 4.21 (3.23-5.20) x10(6)uL Hgb 13.4 (11.5-15.5) g/dL Hct 39.6 (30.0-51.3) % MCV 94.0 (80-96) fL MCH 31.9 (27.7-33.6) pg MCHC 33.9 (32.2-35.4) g/dL RDW 13.1 (11.5-15.5) % Plt Count 254 (125-369) X10(3)uL MPV 8.2 (7.4-10.4) fL Neut % (Auto) 48.8 (46-82) % Lymph % (Auto) 41.0 H (13-37) % [place] % (Auto) 7.7 (4-12) % Eos % (Auto) 2 (1.0-5.0) % Baso % (Auto) 1 (0-2) % Neut # (Auto) 2.7 (1.6-8.3) # Lymph # (Auto) 2.2 (0.6-5.0) # [place] # (Auto) 0.4 (0.0-1.3) # Eos # (Auto) 0.1 (0.0-0.8) # Baso # (Auto) 0.0 (0.0-0.2) # Sodium 141 (135-145) mmol/L Potassium 4.1 (3.5-5.3) mmol/L Chloride 104 (100-110) mmol/L Carbon Dioxide 26 (21-32) mmol/L BUN 22 H (7-18) mg/dL Creatinine 0.6 (0.55-1.02) mg/dL Est Cr Clr Drug Dosing TNP Estimated GFR (MDRD) > 60 (>60) BUN/Creatinine Ratio 36.7 H (9-20) Glucose 95 (80-116) mg/dL Calcium 8.8 (8.6-10.2) mg/dL Troponin I < 0.017 L (<0.017-0.056) ng/mL Result Diagrams: 04/18/19 13:25 04/18/19 13:25 EKG INTERPRETATION EKG Date: 04/18/19 Time: 13:36 Rhythm: NSR Rate (Beats/Min): 68 Weiner: LAD-Left Weiner Deviation P-Wave: Present QRS: Other (incomplete RBBB, LAFB, wide QRS slightly at 114) ST-T: Normal QT: Normal Comparison: NA - No Prior EKG EKG Interpretation Comments: Sinus rhythm, incomplete RBBB, LAFB, no infarct or ischemia. - Problem List (1) Chest pain SNOMED Code(s): 32265529 ICD Code: R07.9 - CHEST PAIN, UNSPECIFIED Status: Acute Current Visit: Yes (2) History of cardiac arrest SNOMED Code(s): 576002387 ICD Code: Z86.74 - PERSONAL HISTORY OF SUDDEN CARDIAC ARREST Status: Chronic Current Visit: Yes (3) Hypertensive urgency SNOMED Code(s): 060652235 ICD Code: I16.0 - HYPERTENSIVE URGENCY Status: Acute Current Visit: No Problem List Initiated/Reviewed/Updated: Yes Orders Last 24hrs: Active Orders 24 hr Category Date Time Status Patient Status [ADT] Routine ADT 04/18/19 16:42 Ordered EKG Documentation Completion [RC] ASDIRECTED Care 04/18/19 13:02 Inactive EKG Documentation Completion [RC] ASDIRECTED Care 04/18/19 17:06 Ordered EKG Documentation Completion [RC] ONETIME Care 04/18/19 20:00 Ordered Oxygen Therapy [RC] PRN Care 04/18/19 16:42 Ordered Up ad Digna [RC] ASDIRECTED Care 04/18/19 16:42 Ordered VTE/DVT Education [RC] Per Unit Routine Care 04/18/19 16:42 Ordered Vital Signs [RC] Q4H Care 04/18/19 16:42 Ordered Heart Healthy Diet [DIET] Diet 04/18/19 Dinner Ordered CATECHOLAMINES,UR.,FREE,24 HR Routine Lab 04/18/19 17:03 Ordered MAGNESIUM [CHEM] Routine Lab 04/18/19 16:49 Ordered TROPONIN I [CHEM] Routine Lab 04/18/19 20:00 Ordered TROPONIN I [CHEM] Routine Lab 04/19/19 01:00 Ordered Hydrochlorothiazide/Lisinopril [Lisinopril/HCTZ 10-12.5 Med 04/18/19 17:15 Ordered MG] 1 tab PO DAILY Mv-Min/Iron/Folic/Calcium/Vitk [Women's Multivitamin Med 04/19/19 09:00 Ordered Tablet] 1 tab PO DAILY Nitroglycerin [Nitrostat] Med 04/18/19 17:00 Ordered 0.4 mg SL Q5M PRN Ondansetron [Zofran ODT] Med 04/18/19 16:49 Ordered 4 mg PO Q4H PRN Sodium Chloride 0.9% [Saline Flush] Med 04/18/19 16:49 Ordered 10 ml FLUSH ASDIRECTED PRN Saline Lock Insert [OM.PC] Routine Oth 04/18/19 16:49 Ordered Resuscitation Status Routine Resus Stat 04/18/19 16:42 Ordered EKG 12 Lead [EK] Routine Ther 04/18/19 13:02 Stop Req EKG 12 Lead [EK] Routine Ther 04/18/19 16:49 Ordered EKG 12 Lead [EK] Routine Ther 04/19/19 01:00 Ordered Medication Orders Lisinopril/HCTZ (Lisinopril/Hctz 10-12.5 Mg) 1 tab PO DAILY JAYDEN Nitroglycerin (Nitrostat) 0.4 mg SL Q5M PRN PRN Reason: Chest Pain Non-Formulary Medication (Mv-Min/Iron/Folic/Calcium/Vitk [Women's Multivitamin Tablet]) 1 tab PO DAILY JAYDEN Ondansetron HCl (Zofran Odt) 4 mg PO Q4H PRN PRN Reason: nausea, able to take PO Sodium Chloride (Saline Flush) 10 ml FLUSH ASDIRECTED PRN PRN Reason: Keep Vein Open Assessment/Plan Comment:: 1. Admit for observation for serial cardiac testing, telemetry and hypertensive urgency. 2. Start Lisinopril 10 mg/HCTZ 12.5 mg po daily, give now and repeat in am. Stop Losartan. Labile hypertension and history of cardiac arrest during surgery , though she is low risk for pheochromocytoma will get catecholamines, 24 hour urine, may get renal ultrasound in the morning. 3. Serial troponin at 2000 and 100am with EKGs. Lovenox 1mg/kg q12h, Nitroglycerin 0.4 mg SL q5min prn. 4. Review [place] records. 5. FULL CODE 6. Adjust treatments as necessary. - Mortality Measure Prognosis:: Good
[2019-04-18] MEDS: Hydrochlorothiazide/Lisinopril 12.5-10 MG Tab PO SCH (17:32)
[2019-04-18] MEDS: Acetaminophen 325 MG Tab PO PRN (23:40)
[2019-04-19] MEDS ORDERED: VITK PO SCH (09:00)
[2019-04-19] MEDS ORDERED: amLODIPine 2.5 MG Tab PO SCH (09:00)
[2019-04-19] MEDS ORDERED: MV MIN PO SCH (09:00)
[2019-04-19] MEDS ORDERED: IRON PO SCH (09:00)
[2019-04-19] MEDS ORDERED: CALCIUM PO SCH (09:00)
[2019-04-19] MEDS ORDERED: [UNRECOGNIZED DRUG - OTHER] PO SCH (09:00)
[2019-04-19] MEDS ORDERED: FOLIC PO SCH (09:00)
[2019-04-19] MEDS: Hydrochlorothiazide/Lisinopril 12.5-10 MG Tab PO SCH (09:40)
[2019-04-19] MEDS: Acetaminophen 325 MG Tab PO PRN (09:44)
[2019-04-19] MEDS: Nitroglycerin 0.4 MG Tab.SL SL PRN ×2 (09:45→12:05)
[2019-04-19] MEDS ORDERED: amLODIPine 5 MG Tab PO ONE (11:52)
[2019-04-19] MEDS ORDERED: Famotidine 20 MG Tab PO ONE (14:07)
[2019-04-19 16:05] VITALS: BP 131/80; PULSE 64
--- NOTE | 2019-04-19 16:25 | PCM.DCSUM1 ---
Discharge Summary - Hospital Course HPI Initial Comments: A 44 year old female presented to ER for central chest pain, since this morning around 9 am, lasts for 10-15 sec, radiates to left arm, feels like squeezing pressure. Headache, but no shortness of breath, nausea or vomiting. She has been having uncontrolled hypertension for over a year. She stopped her medication for 2 months in [place] because she felt better, she has been on Losartan 50 mg and then was increased to 100 mg last week seen in walk-in clinic for hypertensive urgency. She had been on a couple of others in the past but Dr Messina, her primary doctor took her off them. Denies taking Metoprolol , Lisinopril, HCTZ, Amlodipine, or any water pill type medication. Thinks they put her on an anxiety medication in the past for her blood pressure but Dr Messina stopped. She states initially her blood pressure was better after being seen last week but then she started having increased body aches, stomach pains, said the side effects listed with the medication. She doesn't feel like she has the flu, no fevers or chills. No sinus symptoms. No dysuria, frequency or hematuria. No peripheral edema. Received nitroglycerin in ER which has brought her pressures down to 140s, headache improved. Denies any heartburn but has not been worked up for this either, states she gets stressed easily. Strong family history of heart disease: dad in his sleep at 48, had blocked vessels in his neck, brother had WA at 38, her mom is getting stents today in [place]. She also has history of cardiac arrest during her hysterectomy -salpingectomy, it was felt it was due to the anesthesia. Dad also had a pacemaker at one point for arrhythmia what kind she is not sure. States she had some tests done by Dr Messina but not sure what the results were, she couldn' t find in her chart. Diagnosis: Stroke: No - Discharge Data Discharge Date: 04/19/19 Discharge Disposition: Home, Self-Care 01 Condition: Stable - Referral to Home Health Primary Care Physician: Gilles Messina MD - Discharge Diagnosis/Problem(s) (1) Chest pain SNOMED Code(s): 15218368 ICD Code: R07.9 - CHEST PAIN, UNSPECIFIED Status: Acute Current Visit: Yes Problem Details: Will have stress test tomorrow am with Dr Sanchez at [facility]. (2) History of cardiac arrest SNOMED Code(s): 932678091 ICD Code: Z86.74 - PERSONAL HISTORY OF SUDDEN CARDIAC ARREST Status: Chronic Current Visit: Yes (3) Hypertensive urgency SNOMED Code(s): 625134653 ICD Code: I16.0 - HYPERTENSIVE URGENCY Status: Resolved Current Visit: No (4) Esophageal spasm SNOMED Code(s): 752930696 ICD Code: K22.4 - DYSKINESIA OF ESOPHAGUS Status: Acute Current Visit: Yes Problem Details: possible, improved with nitroglycerin. Referral to Dr Fernandez for EGD. (5) Hypertension SNOMED Code(s): 77916023 ICD Code: I10 - ESSENTIAL (PRIMARY) HYPERTENSION Status: Acute Current Visit: Yes Problem Details: improved to 134/82 Qualifiers: Hypertension type: essential hypertension Qualified Code(s): I10 - Essential (primary) hypertension - Patient Summary/Data Hospital Course: Patient was admitted for hypertensive urgency and chest pain. 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 3 sets of troponin were negative. She continued to have chest pressure in the evening even with her blood pressure coming down, described like spasms or squeezing sensation. Started Lisinopril/HCTZ 10/12.5 mg on day of admission and then next morning, SBPs came down to 140s, added Amlodipine 2.5 then gave 5 mg dose, her SBP came down into the 130s. Still having chest pressure 6/10. She did have improvement with nitroglycerin and Pepcid, pressure at 2/10. Telemetry showed normal sinus rhythm with some ectopies. Initially was going work her up for secondary hypertension with catecholamine urine test but we did not have the correct container to collect the test even though [facility] does the test, it would take a few days to get in. [facility] was contacted and they do the test at their facility in [place]. Since she responded so well to Amlodipine, Lisinopril/HCTZ she may be able to forgo secondary hypertension workup. Spoke with Dr Sanchez at [facility], he recommended treadmill stress test and will do tomorrow at 11 am. Also will do referral for Dr Fernandez for possible GERD/esophageal spasms since Pepcid and nitroglycerin helped symptoms with negative cardiac tests. This will be done as outpatient. - Patient Instructions Diet: Heart Healthy Diet Activity: As Tolerated Showering/Bathing: May Shower Notify Provider of: Increased Pain, Nausea and/or Vomiting Other/Special Instructions: Follow up with Dr Daniel Dorantes 04/20 at 11:00 AM for stress test. May take medications in the morning with light breakfast, NO caffeine and wear comfort able clothes with shoes to run in. Follow up with Dr Fernandez, [facility] will call you to set up appointment. Follow up with Dr Vega at end of this week if possible. - Discharge Plan *PRESCRIPTION DRUG MONITORING PROGRAM REVIEWED*: Not Applicable *COPY OF PRESCRIPTION DRUG MONITORING REPORT IN PATIENT ALISA: No Prescriptions/Med Rec: amLODIPine [Norvasc] 5 mg PO DAILY 30 Days #30 tablet Hydrochlorothiazide/Lisinopril [Lisinopril/HCTZ 10-12.5 MG] 1 tab PO DAILY 30 Days #30 tablet Nitroglycerin [Nitrostat] 0.4 mg SL Q5M PRN 8 Days #25 tab.sl PRN Reason: Chest Pain Home Medications: Home Meds Ibuprofen 800 mg PO BID PRN 04/18/19 [History] Mv-Min/Iron/Folic/Calcium/Vitk [Women's Multivitamin Tablet] 1 tab PO DAILY [History] Hydrochlorothiazide/Lisinopril [Lisinopril/HCTZ 10-12.5 MG] 1 tab PO DAILY 30 Days #30 tablet 04/19/19 [Rx] Nitroglycerin [Nitrostat] 0.4 mg SL Q5M PRN 8 Days #25 tab.sl 04/19/19 [Rx] amLODIPine [Norvasc] 5 mg PO DAILY 30 Days #30 tablet 04/19/19 [Rx] Oxygen Therapy Mode: Room Air Patient Handouts: Urine Catecholamines Test Forms: ED Department Discharge Referrals: Gilles Messina MD [Primary Care Provider] - - Discharge Summary/Plan Comment DC Time >30 min.: Yes - Patient Data Vitals - Most Recent: Last Vital Signs Temp 36.8 C 04/19/19 16:04 Pulse 64 04/19/19 16:04 Resp 18 04/19/19 16:04 BP 131/80 04/19/19 16:04 Pulse Ox 97 04/19/19 16:04 Weight - Most Recent: 79.379 kg Lab Results - Last 24 hrs: Laboratory Results - last 24 hr 04/18/19 04/18/19 04/19/19 Range/Units 13:25 20:00 01:10 Magnesium 1.9 (1.8-2.5) mg/dL Troponin I < 0.017 L < 0.017 L (<0.017-0.056) ng/mL Med Orders - Current: Current Medications Acetaminophen (Tylenol) 650 mg PO Q4H PRN PRN Reason: Headache Last Admin: 04/19/19 09:44 Dose: 650 mg Amlodipine Besylate (Norvasc) 5 mg PO DAILY [facility] Lisinopril/HCTZ (Lisinopril/Hctz 10-12.5 Mg) 1 tab PO DAILY [facility] Last Admin: 04/19/19 09:40 Dose: 1 tab Nitroglycerin (Nitrostat) 0.4 mg SL Q5M PRN PRN Reason: Chest Pain Last Admin: 04/19/19 12:05 Dose: 0.4 mg Ondansetron HCl (Zofran Odt) 4 mg PO Q4H PRN PRN Reason: nausea, able to take PO Sodium Chloride (Saline Flush) 10 ml FLUSH ASDIRECTED PRN PRN Reason: Keep Vein Open Discontinued Medications Amlodipine Besylate (Norvasc) 2.5 mg PO DAILY [facility] Last Admin: 04/19/19 09:39 Dose: 2.5 mg Amlodipine Besylate (Norvasc) 5 mg PO ONETIME ONE Stop: 04/19/19 11:53 Last Admin: 04/19/19 12:03 Dose: 5 mg Aspirin (Aspirin) 324 mg PO ONETIME ONE Stop: 04/18/19 13:53 Last Admin: 04/18/19 14:43 Dose: 324 mg Famotidine (Pepcid) 20 mg PO ONETIME ONE Stop: 04/19/19 14:08 Last Admin: 04/19/19 16:03 Dose: 20 mg Nitroglycerin (Nitrostat) 0.4 mg SL Q5M PRN PRN Reason: Chest Pain Last Admin: 04/18/19 15:04 Dose: 0.4 mg Non-Formulary Medication (Mv-Min/Iron/Folic/Calcium/Vitk [Women's Multivitamin Tablet]) 1 tab PO DAILY JAYDEN - Exam General: Reports: Alert, Oriented, Cooperative Lungs: Reports: Clear to Auscultation, Normal Respiratory Effort Cardiovascular: Reports: Regular Rate, Regular Rhythm GI/Abdominal Exam: Normal Bowel Sounds, Soft, Non-Tender, No Organomegaly, No Distention, No Abnormal Bruit, No Mass Extremities: No Pedal Edema Skin: Reports: Warm, Dry, Intact
[2019-04-20] MEDS ORDERED: amLODIPine 5 MG Tab PO SCH (09:00)
--- NOTE | 2019-04-20 09:23 | EDM.PDOC ---
ED HPI GENERAL MEDICAL PROBLEM - General Chief Complaint: Chest Pain Stated Complaint: CHEST PAIN/HIGH BLOOD PRESSURE Time Seen by Provider: 04/18/19 13:40 Source of Information: Reports: Patient, Provider (Dr Jaramillo) History Limitations: Reports: No Limitations - History of Present Illness INITIAL COMMENTS - FREE TEXT/NARRATIVE: [late entry note] patient is a pleasant 44-year-old female who presents today with concern for a cough that is been persistent the last couple of days and significantly elevated blood pressure at home. Per her home read it was 192/112. She has noticed a headache today, and has just not been feeling well. Some cold sweats. She had some chest pain this morning, radiated to left arm, but now feels significantly better. She was recently changed and is only on losartan 100 mg by mouth for outpatient blood pressure management. Her blood pressure has been difficult to control per her report. She denies blurry vision, ringing in her ears, chest pain currently and any shortness of breath. She took some ibuprofen this morning for her headache but it hasn't helped. She denies fever, chills or sweats. She otherwise does not have any symptoms or complaints Middle Sternum Pain Score (Numeric/FACES): 2 - Related Data Allergies Allergy/AdvReac Type Severity Reaction Status Date / Time naproxen sodium [From Aleve] Allergy Itching Verified 04/18/19 14:27 Home Meds: Home Meds Ibuprofen 800 mg PO BID PRN 04/18/19 [History] Mv-Min/Iron/Folic/Calcium/Vitk [Women's Multivitamin Tablet] 1 tab PO DAILY [History] Hydrochlorothiazide/Lisinopril [Lisinopril/HCTZ 10-12.5 MG] 1 tab PO DAILY 30 Days #30 tablet 04/19/19 [Rx] Nitroglycerin [Nitrostat] 0.4 mg SL Q5M PRN 8 Days #25 tab.sl 04/19/19 [Rx] amLODIPine [Norvasc] 5 mg PO DAILY 30 Days #30 tablet 04/19/19 [Rx] Past Medical History - Past Health History Medical/Surgical History: Denies Medical/Surgical History HEENT History: Reports: None Cardiovascular History: Reports: Hypertension Other Cardiovascular History: Stated her heart stopped during a surgery she had in the past. Respiratory History: Reports: None Gastrointestinal History: Reports: None Genitourinary History: Reports: None COAT IRONER HAND History: Reports: None, Other COAT IRONER HAND History: [id number] Musculoskeletal History: Reports: Fracture Other Musculoskeletal History: hx fx nose, toes Neurological History: Reports: None Psychiatric History: Reports: Anxiety, Depression, Panic Attack Endocrine/Metabolic History: Reports: None Hematologic History: Reports: Anemia Immunologic History: Reports: None Oncologic (Cancer) History: Reports: None Dermatologic History: Reports: None - Infectious Disease History Infectious Disease History: Reports: Chicken Pox - Past Surgical History Head Surgeries/Procedures: Reports: None HEENT Surgical History: Reports: None GI Surgical History: Reports: None Female Surgical History: Reports: None, Hysterectomy, Salpingo-Oophorectomy Endocrine Surgical History: Reports: None Neurological Surgical History: Reports: None Musculoskeletal Surgical History: Reports: None Oncologic Surgical History: Reports: None Dermatological Surgical History: Reports: None Social & Family History - Family History Family Medical History: Noncontributory HEENT: Reports: None Cardiac: Reports: None, CAD (mom, dad, brother), Hypertension, MS (brother at 38 ), Stent (mom 04/18/2019), Other (See Below) (Dad sudden at 48, autopsy showed blocked vessels in posterior neck) Respiratory: Reports: None GI: Reports: None : Reports: None, Dialysis (brother, born with one kidney & one testicle) Musculoskeletal: Reports: None Neurological: Reports: None Psychiatric: Reports: Depression Endocrine/Metabolic: Reports: Diabetes, type II - Tobacco Use Smoking Status *Q: Current Every Day Smoker (had pain with smoking yesterday so she hasn't smoked today. Never had that happen before.) Years of Tobacco use: 25 Packs/Tins Daily: 1 Used Tobacco, but Quit: Yes Month/Year Tobacco Last Used: 3 days ago - Caffeine Use Caffeine Use: Reports: Coffee Caffeine Use Comment: Two cups of coffee a day. - Alcohol Use Alcohol Use History: Yes - Recreational Drug Use Recreational Drug Use: No Drug Use in Last 12 Months: Yes Recreational Drug Type: Reports: Marijuana/Hashish Recreational Drug Use Frequency: Socially ED ROS GENERAL - Review of Systems Review Of Systems: ROS reveals no pertinent complaints other than HPI. ED EXAM, GENERAL - Physical Exam Exam: See Below Free Text/Narrative:: Gen.: Alert, pleasant no acute distress, anxious affect. Head is atraumatic, pupils are equal and reactive and extraocular motion is intact. Facial muscles are symmetric and her neck is supple. Throat is without erythema, mucous members are moist. Heart is regular rate and rhythm and I do not hear murmur. Lungs are clear throughout with normal air movement and no wheezes or crackles. Abdomen positive bowel sounds, soft nondistended nontender. Peripheral pulses + 2 in the upper and lower extremities and there is no lower extremity edema. Psych: Very anxious affect, makes good eye contact and answers questions appropriately. Peripheral Pulses: 2+: Radial (L), Radial (R), Posterior Tibial (L), Posterior Tibial (R), Dorsalis Pedis (L), Dorsalis Pedis (R) GI/Abdominal: Normal Bowel Sounds, Soft, Non-Tender, No Organomegaly, No Distention, No Abnormal Bruit, No Mass Extremities: No Pedal Edema Course - Vital Signs Text/Narrative:: patient presenting with significantly elevated blood pressure, 176/94 here. On suboptimal outpatient therapy, labs ordered, EKG unremarkable. Last Recorded V/S: Last Vital Signs Temp 36.8 C 04/19/19 16:04 Pulse 64 04/19/19 16:04 Resp 18 04/19/19 16:04 BP 131/80 04/19/19 16:04 Pulse Ox 97 04/19/19 16:04 - Orders/Labs/Meds Labs: Laboratory Tests 04/18/19 04/18/19 04/18/19 Range/Units 13:25 13:25 13:25 WBC 5.4 (4.5-12.0) X10-3/uL RBC 4.21 (3.23-5.20) x10(6)uL Hgb 13.4 (11.5-15.5) g/dL Hct 39.6 (30.0-51.3) % MCV 94.0 (80-96) fL MCH 31.9 (27.7-33.6) pg MCHC 33.9 (32.2-35.4) g/dL RDW 13.1 (11.5-15.5) % Plt Count 254 (125-369) X10(3)uL MPV 8.2 (7.4-10.4) fL Neut % (Auto) 48.8 (46-82) % Lymph % (Auto) 41.0 H (13-37) % Miner % (Auto) 7.7 (4-12) % Eos % (Auto) 2 (1.0-5.0) % Baso % (Auto) 1 (0-2) % Neut # (Auto) 2.7 (1.6-8.3) # Lymph # (Auto) 2.2 (0.6-5.0) # Miner # (Auto) 0.4 (0.0-1.3) # Eos # (Auto) 0.1 (0.0-0.8) # Baso # (Auto) 0.0 (0.0-0.2) # Sodium 141 (135-145) mmol/L Potassium 4.1 (3.5-5.3) mmol/L Chloride 104 (100-110) mmol/L Carbon Dioxide 26 (21-32) mmol/L BUN 22 H (7-18) mg/dL Creatinine 0.6 (0.55-1.02) mg/dL Est Cr Clr Drug Dosing TNP Estimated GFR (MDRD) > 60 (>60) BUN/Creatinine Ratio 36.7 H (9-20) Glucose 95 (80-116) mg/dL Calcium 8.8 (8.6-10.2) mg/dL Magnesium (1.8-2.5) mg/dL Troponin I < 0.017 L (<0.017-0.056) ng/mL 04/18/19 Range/Units 13:25 WBC (4.5-12.0) X10-3/uL RBC (3.23-5.20) x10(6)uL Hgb (11.5-15.5) g/dL Hct (30.0-51.3) % MCV (80-96) fL MCH (27.7-33.6) pg MCHC (32.2-35.4) g/dL RDW (11.5-15.5) % Plt Count (125-369) X10(3)uL MPV (7.4-10.4) fL Neut % (Auto) (46-82) % Lymph % (Auto) (13-37) % Miner % (Auto) (4-12) % Eos % (Auto) (1.0-5.0) % Baso % (Auto) (0-2) % Neut # (Auto) (1.6-8.3) # Lymph # (Auto) (0.6-5.0) # Miner # (Auto) (0.0-1.3) # Eos # (Auto) (0.0-0.8) # Baso # (Auto) (0.0-0.2) # Sodium (135-145) mmol/L Potassium (3.5-5.3) mmol/L Chloride (100-110) mmol/L Carbon Dioxide (21-32) mmol/L BUN (7-18) mg/dL Creatinine (0.55-1.02) mg/dL Est Cr Clr Drug Dosing Estimated GFR (MDRD) (>60) BUN/Creatinine Ratio (9-20) Glucose (80-116) mg/dL Calcium (8.6-10.2) mg/dL Magnesium 1.9 (1.8-2.5) mg/dL Troponin I (<0.017-0.056) ng/mL Meds: Medications Discontinued Medications Generic Name Dose Route Start Last Admin Trade Name Freq PRN Reason Stop Dose Admin Acetaminophen 650 mg 04/18/19 23:19 04/19/19 09:44 Tylenol PO 650 mg Q4H PRN Administration Headache Amlodipine Besylate 2.5 mg 04/19/19 09:00 04/19/19 09:39 Norvasc PO 2.5 mg DAILY JAYDEN Administration Amlodipine Besylate 5 mg 04/19/19 11:52 04/19/19 12:03 Norvasc PO 04/19/19 11:53 5 mg ONETIME ONE Administration Amlodipine Besylate 5 mg 04/20/19 09:00 Norvasc PO DAILY JAYDEN Aspirin 324 mg 04/18/19 13:52 04/18/19 14:43 Aspirin PO 04/18/19 13:53 324 mg ONETIME ONE Administration Famotidine 20 mg 04/19/19 14:07 04/19/19 16:03 Pepcid PO 04/19/19 14:08 20 mg ONETIME ONE Administration Lisinopril/HCTZ 1 tab 04/18/19 17:15 04/19/19 09:40 Lisinopril/Hctz 10-12.5 Mg PO 1 tab DAILY JAYDEN Administration Nitroglycerin 0.4 mg 04/18/19 13:53 04/18/19 15:04 Nitrostat SL 0.4 mg Q5M PRN Administration Chest Pain Nitroglycerin 0.4 mg 04/18/19 17:00 04/19/19 12:05 Nitrostat SL 0.4 mg Q5M PRN Administration Chest Pain Non-Formulary Medication 1 tab 04/19/19 09:00 Mv-Min/Iron/Folic/Calcium/Vitk [Women's Multivitamin Tablet] PO DAILY JAYDEN Ondansetron HCl 4 mg 04/18/19 16:49 Zofran Odt PO Q4H PRN nausea, able to take PO Sodium Chloride 10 ml 04/18/19 16:49 Saline Flush FLUSH ASDIRECTED PRN Keep Vein Open - Re-Assessments/Exams Free Text/Narrative Re-Assessment/Exam: labs reviewed, troponin negative, everything else within normal limits. Discussed with patient observation admission to the hospital to get control of her blood pressure, she is very much in agreement with this. Patient discussed with Dr. Hodges, who accepts patient for admission Departure - Departure Time of Disposition: 00:00 Disposition: Refer to Observation Condition: Fair Clinical Impression: Hypertensive urgency - Discharge Information *PRESCRIPTION DRUG MONITORING PROGRAM REVIEWED*: Not Applicable *COPY OF PRESCRIPTION DRUG MONITORING REPORT IN PATIENT ALISA: No
== END 2019-04-19 18:52 | disposition home or self-care (01) ==
LOC: FB.ED 13:01 → FB.MS 16:25
PROVIDERS: ADMIT Family Medicine; ATTEND Family Medicine
DX: I16.0 Hypertensive urgency (principal); I10 Essential (primary) hypertension; K22.4 Dyskinesia of esophagus; F17.210 Nicotine dependence, cigarettes, uncomplicated; Z79.899 Other long term (current) drug therapy; Z86.74 Personal history of sudden cardiac arrest
CPT/HCPCS: 36415; 71046; 80048; 83735; 84484; 85025; 93005; 99285; A9270; G0378

== ENCOUNTER 2021-09-30 08:03 | Emergency (ER) | payer MEDICAID ==
[2021-09-30 08:29] VITALS: PULSE 66
[2021-09-30] MEDS: Aspirin 81 MG Tab.Chew PO ONE (08:34)
[2021-09-30] MEDS: Nitroglycerin 0.4 MG Tab.SL SL PRN (08:34)
[2021-09-30] MEDS: Alum Hydroxide/Mag Hydroxide 15 ML, Lidocaine 2% 15 ML PO ONE ×2 (08:42)
[2021-09-30 08:48] VITALS: BP 144/84
== END 2021-09-30 09:14 | disposition home or self-care (01) ==
LOC: FB.ED 08:03
DX: K21.9 Gastro-esophageal reflux disease without esophagitis (principal); I10 Essential (primary) hypertension; Z88.5 Allergy status to narcotic agent
CPT/HCPCS: 36415; 80048; 84484; 93005; 93010; 99283; 99285-25; A9270-GY

== ENCOUNTER 2021-10-24 08:13 | Emergency (ER) | payer MEDICAID ==
[2021-10-24 08:24] VITALS: BP 157/81; PULSE 73
[2021-10-24] MEDS ORDERED: Acetaminophen/HYDROcodone 325-5 MG Tab PO STA (09:04)
[2021-10-24] MEDS ORDERED: Ketorolac 30 MG/ML SDV IM STA (09:04)
[2021-10-24] MEDS ORDERED: LORazepam 2 MG/ML SDV IM STA (09:05)
== END 2021-10-24 09:53 | disposition home or self-care (01) ==
LOC: FB.ED 08:13
DX: F41.9 Anxiety disorder, unspecified (principal); I10 Essential (primary) hypertension; Z72.0 Tobacco use; Z88.5 Allergy status to narcotic agent
CPT/HCPCS: 73110-LT; 96372; 96374; 99282; 99283-25; A9270-GY; J1885; J2060

== ENCOUNTER 2022-02-13 09:46 | Emergency (ER) | payer MEDICAID ==
[2022-02-13] MEDS ORDERED: Ketorolac 30 MG/ML SDV IVPUSH ONE (10:14)
[2022-02-13] MEDS ORDERED: Ondansetron 4 MG/2 ML SDV IVPUSH ONE (10:14)
[2022-02-13] MEDS ORDERED: Sodium Chloride 0.9% 1,000 ML IV SCH (10:15)
[2022-02-13] MEDS ORDERED: Acetaminophen 500 MG Tab PO STA (10:15)
[2022-02-13 10:40] LABS: ESTIMATED GFR 37 mL/min (>60)
[2022-02-13 16:54] VITALS: BP 128/79; PULSE 77
== END 2022-02-13 13:20 | disposition home or self-care (01) ==
LOC: FB.ED 09:46
DX: E86.0 Dehydration (principal); N17.9 Acute kidney failure, unspecified; N12 Tubulo-interstitial nephritis, not specified as acute or chronic; I10 Essential (primary) hypertension; Z79.899 Other long term (current) drug therapy; Z90.710 Acquired absence of both cervix and uterus; Z20.822 Contact with and (suspected) exposure to COVID-19
CPT/HCPCS: 36415; 71045; 80048; 81001; 85025; 87086; 87088; 87186; 87635; 96374; 96375; 99284; A9270; J1885; J2405; J7030; U0002

== ENCOUNTER 2023-02-05 04:49 | Emergency (ER) | payer MEDICAID ==
[2023-02-05 05:08] VITALS: BP 154/111; PULSE 81
== END 2023-02-05 05:55 | disposition left against medical advice (07) ==
LOC: FB.ED 04:49
DX: F41.9 Anxiety disorder, unspecified (principal); I10 Essential (primary) hypertension; Z88.8 Allergy status to other drugs, medicaments and biological substances; Z72.0 Tobacco use
CPT/HCPCS: 93005; 99285

== ENCOUNTER 2023-11-08 18:11 | Emergency (ER) | payer MEDICAID ==
[2023-11-08] MEDS ORDERED: Sodium Chloride 0.9% 10 ML Syringe FLUSH PRN (19:06)
[2023-11-08] MEDS: Sodium Chloride 0.9% 1,000 ML IV SCH (19:23)
[2023-11-08] MEDS: Aspirin 81 MG Tab.Chew PO ONE (19:23)
[2023-11-08] MEDS: LORazepam 2 MG/ML SDV IVPUSH ONE (19:24)
[2023-11-08 19:25] LABS: BASOPHILS ABSOLUTE AUTO 0.1 x10-3/uL (0.0-0.1); BASOPHILS PERCENT AUTO 0.9 % (0.2-1.5); BLOOD UREA NITROGEN,BUN 28 mg/dL (7-18); CALCIUM 9.2 mg/dL (8.6-10.2); CARBON DIOXIDE,CO2 28 mmol/L (21-32); CHLORIDE,CL 103 mmol/L (100-110); CREATININE 0.8 mg/dL (0.55-1.02); EOSINOPHILS ABSOLUTE AUTO 0.2 x10-3/uL (0.0-0.8); EST CRCL DRUG DOSING (CG) 83.63 mL/min; ESTIMATED GFR 91 mL/min (>60); GLUCOSE RANDOM 105 mg/dL (80-116); HEMATOCRIT 36.3 % (34.2-48.2); HEMOGLOBIN 12.1 g/dL (11.4-15.5); LYMPHOCYTES ABSOLUTE AUTO 3.2 x10-3/uL (1.0-4.4); LYMPHOCYTES PERCENT AUTO 41.2 % (18.4-52.1); MEAN CORPUSCULAR HEMOGLOBIN 30.3 pg (23.9-33.9); MEAN CORPUSCULAR HGB CONC 33.4 g/dL (31.9-34.8); MEAN CORPUSCULAR VOLUME 90.7 fL (76.7-100.5); MONOCYTES ABSOLUTE AUTO 0.5 x10-3/uL (0.3-1.0); MONOCYTES PERCENT AUTO 6.9 % (4.4-15.7); NEUTROPHILS ABSOLUTE AUTO 3.7 x10-3/uL (1.5-6.3); PLATELET COUNT,PLT 227 x10(3)uL (151-488); POTASSIUM,K 4.1 mmol/L (3.5-5.3); SODIUM,NA 141 mmol/L (135-145); WHITE BLOOD CELL COUNT,WBC 7.7 x10-3/uL (3.0-10.3)
[2023-11-08 19:30] LABS: A/G RATIO 1.1; ALANINE AMINOTRANSFERASE,ALT 23 U/L (12-36); ALBUMIN 3.9 g/dL (3.5-5.2); ALKALINE PHOSPHATASE 71 IU/L (56-112); ASPARTATE AMNIOTRANSFERASE,AST 23 IU/L (5-25); BILIRUBIN TOTAL 0.3 mg/dL (0.1-1.3); MAGNESIUM 2.2 mg/dL (1.8-2.5); PROTEIN TOTAL,TP 7.6 g/dL (6.0-8.0)
[2023-11-08] MEDS: Nitroglycerin 0.4 MG Tab.SL SL PRN (19:31)
[2023-11-08 21:54] VITALS: BP 124/77; PULSE 68
== END 2023-11-08 21:50 | disposition home or self-care (01) ==
LOC: FB.ED 18:11
DX: F41.9 Anxiety disorder, unspecified (principal); R07.89 Other chest pain; I10 Essential (primary) hypertension; F17.200 Nicotine dependence, unspecified, uncomplicated; Z88.6 Allergy status to analgesic agent; Z79.899 Other long term (current) drug therapy; Z86.19 Personal history of other infectious and parasitic diseases
CPT/HCPCS: 36415; 71045; 80053; 83735; 84484; 85025; 85379; 93005; 96374; 99285; A9270; J2060; J7030; 93010; 99284

== ENCOUNTER 2025-01-01 13:23 | Emergency (ER) | payer MEDICAID ==
[2025-01-01] MEDS: Aspirin 81 MG Tab.Chew PO ONE (14:03)
[2025-01-01 14:15] LABS: BASOPHILS ABSOLUTE AUTO 0.1 x10-3/uL (0.0-0.1); BASOPHILS PERCENT AUTO 0.6 % (0.2-1.5); EOSINOPHILS ABSOLUTE AUTO 0.2 x10-3/uL (0.0-0.8); EOSINOPHILS PERCENT AUTO 1.8 % (0.6-8.1); HEMATOCRIT 37.3 % (34.2-48.2); HEMOGLOBIN 12.7 g/dL (11.4-15.5); LYMPHOCYTES ABSOLUTE AUTO 2.3 x10-3/uL (1.0-4.4); LYMPHOCYTES PERCENT AUTO 26.6 % (18.4-52.1); MEAN CORPUSCULAR HEMOGLOBIN 29.9 pg (23.9-33.9); MEAN CORPUSCULAR HGB CONC 34.1 g/dL (31.9-34.8); MEAN CORPUSCULAR VOLUME 87.7 fL (76.7-100.5); MEAN PLATELET VOLUME 8.5 fL (7.1-12.4); MONOCYTES ABSOLUTE AUTO 0.5 x10-3/uL (0.3-1.0); MONOCYTES PERCENT AUTO 5.8 % (4.4-15.7); NEUTROPHILS ABSOLUTE AUTO 5.6 x10-3/uL (1.5-6.3); NEUTROPHILS PERCENT AUTO 65.2 % (30.8-76.2); PLATELET COUNT,PLT 223 x10(3)uL (151-488); RED BLOOD CELL COUNT 4.25 x10(6)uL (3.60-5.20); RED CELL DISTRIBUTION WIDTH 14.2 % (12.3-16.5); WHITE BLOOD CELL COUNT,WBC 8.6 x10-3/uL (3.0-10.3)
[2025-01-01 14:19] LABS: BLOOD UREA NITROGEN,BUN 20 mg/dL (7-18); BUN/CREATININE RATIO 22.2 (9-20); CALCIUM 9.3 mg/dL (8.6-10.2); CARBON DIOXIDE,CO2 29 mmol/L (21-32); CHLORIDE,CL 109 mmol/L (100-110); CREATININE 0.9 mg/dL (0.55-1.02); EST CRCL DRUG DOSING (CG) 73.53 mL/min; ESTIMATED GFR 78 mL/min (>60); GLUCOSE RANDOM 94 mg/dL (80-116); POTASSIUM,K 3.5 mmol/L (3.5-5.3); SODIUM,NA 144 mmol/L (135-145)
[2025-01-01 14:24] LABS: A/G RATIO 1.2; ALANINE AMINOTRANSFERASE,ALT 18 U/L (12-36); ALKALINE PHOSPHATASE 72 IU/L (56-112); ASPARTATE AMNIOTRANSFERASE,AST 14 IU/L (5-25); BILIRUBIN TOTAL 0.3 mg/dL (0.1-1.3); PROTEIN TOTAL,TP 7.4 g/dL (6.0-8.0)
[2025-01-01 14:46] VITALS: BP 104/57; PULSE 71
[2025-01-01] MEDS: Ketorolac 30 MG/ML SDV IM ONE (14:49)
== END 2025-01-01 15:10 | disposition home or self-care (01) ==
LOC: FB.ED 13:23
DX: R07.89 Other chest pain (principal); F43.9 Reaction to severe stress, unspecified; I10 Essential (primary) hypertension; F17.200 Nicotine dependence, unspecified, uncomplicated; Z90.710 Acquired absence of both cervix and uterus
CPT/HCPCS: 36415; 71045; 80053; 84484; 85025; 93005; 96372; 99285; A9270; J1885; 93010; 99283